=== PATIENT | female | born 1975 | race Caucasian/White ===

== ENCOUNTER 2024-11-16 23:44 | Emergency (ER) | payer OTHER, SELFPAY ==
[2024-11-16 23:47] VITALS: BP 149/80; PULSE 91; RESP 18; TEMP 36.6; O2SAT 95; BMI 35.3
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
[2024-11-17] MEDS: 0.9% Normal Saline (1000mL) 1,000 ML 999 ML IV (00:18)
[2024-11-17] MEDS: Cefazolin 2 GM in Syringe 10 ML IV (00:18)
[2024-11-17] MEDS: Diphth,Pertuss(Acell),Tet Vac 0.5 ML Vial IM (00:18)
[2024-11-17 00:27] LABS: Absolute Lymphocyte Count 1.81 X10^3/uL (0.83-4.51); Absolute Neutrophil Count 4.6 X10^3/uL (2.0-7.7); Basophil# 0.06 X10^3/uL; Basophil% 0.8 % (0-1); Eosinophil# 0.16 X10^3/uL; Eosinophils% 2.3 % (0-5); Hematocrit 43.2 % (37-47); Hemoglobin 14.9 g/dL (12.0-15.0); Lymphocyte # 1.81 X10^3/ul (0.83-4.51); Lymphocyte % 25.5 % (19-41); Mean Corp Hgb Conc 34.5 g/dL (32-36); Mean Corpuscular Volume 92.9 fL (81-99); Mean Platelet Vol. 10.3 fl (6.2-12.0); Monocyte# 0.44 X10^3/uL; Monocyte% 6.2 % (0-10); NRBC Flagged by Analyzer 0 % (0-5); Neutrophil % 64.9 % (47-70); Platelet Count 200 K/mm3 (150-450); RBC Distribution Width SD 40.9 fl (35.1-43.9); Red Blood Count 4.65 M/mm3 (4.2-5.4); White Blood Count 7.1 K/mm3 (4.4-11.0)
[2024-11-17 00:32] LABS: Prothrombin Time (Protime)PT. 13.2 SECONDS (11.7-14.9)
[2024-11-17 00:33] LABS: Partial Thromboplast Time 27.3 Seconds (24.1-36.2)
[2024-11-17 00:42] LABS: Anion Gap 12 (5-15); BUN 12 mg/dL (4-19); BUN/Creat Ratio 14.9 RATIO (10-20); Calcium,Total 9.6 mg/dL (7.6-11.0); Carbon Dioxide 23.7 mmol/L (21.0-32.0); Chloride 103 mmol/L (98-108); Creatinine, Serum 0.78 mg/dL (0.70-1.20); EST Glomerular Filtration Rate 93 (>60); Estimated Creatinine Clearance 88.68 ml/min (50-250); Glucose 125 mg/dL (70-99); Potassium 3.8 mmol/L (3.3-5.1); Sodium Level 139 mmol/L (133-145)
[2024-11-17 00:46] VITALS: BP 96/67; PULSE 86; RESP 18; O2SAT 100
[2024-11-17 01:00] VITALS: BP 117/74
[2024-11-17 02:00] VITALS: BP 137/99; PULSE 83; RESP 16; O2SAT 100
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
[2024-11-17 02:30] VITALS: BP 129/81; PULSE 77; RESP 18; TEMP 36.7; O2SAT 100
[2024-11-17] MEDS: Lidocaine 2% /Epi 1:100 (20ml) 20 ML VIAL INFILT (02:34)
== END 2024-11-17 02:36 | disposition home or self-care (01) ==
PROVIDERS: Emergency Provider Emergency Medicine; PCP Family Medicine; Visit Provider Emergency Medicine
DX: S01.01XA Laceration without foreign body of scalp, initial encounter (principal); V80.42XA Occupant of animal-drawn vehicle injured in collision with car, pick-up truck, van, heavy transport vehicle or bus, initial encounter; Z23 Encounter for immunization
CPT/HCPCS: 12002; 70450; 71260; 72125; 74177; 80048; 85025; 85610; 85730; 90715; 96361; 96374; 99284; Q9967; A4216